=== PATIENT | male | born 1980 | race Caucasian/White ===

== ENCOUNTER 2022-06-04 13:53 | Emergency (ER) | payer OTHER, SELFPAY ==
[2022-06-04 14:24] VITALS: BP 129/76; PULSE 84; RESP 16; TEMP 36.4; O2SAT 98
--- NOTE | 2022-06-04 14:50 | ED.URI ---
HPI - URI/Sore Throat General Chief Complaint: Upper Respiratory Infection Stated Complaint: cough, sore throat Time Seen by Provider: 06/04/22 14:50 Source: patient and RN notes reviewed Mode of arrival: ambulatory Limitations: no limitations History of Present Illness HPI Narrative: 42 y/o male presented for c/o subjective fever, malaise, and painful cough for 2 days. Endorses son is sick with similar symptoms. Denies sob, wheezing, n/v/d. Taking vitamins for symptoms. MD elicited complaint: cough Review of Systems Review of Systems: ROS per HPI PMFSH Family History Family History Father Malignant neoplasm of prostate Social History Social History Smoking status: Never smoker Alcohol intake: current Exam Narrative: GENERAL: Ill-appearing, nontoxic EYES: PERRLA, conjunctivae clear ENT: Mucous membranes moist. TMs pearly yi with dull light reflex bilaterally; no tragal tenderness. Oropharynx normal without lesions or exudate NECK: Supple. No lymphadenopathy CHEST: Clear to auscultation, breath sounds equal. HEART: Regular rate and rhythm. No murmur heard. SKIN: Warm, dry, no rash. NEURO: Alert and oriented x3. PSYCH: Normal mood and affect Course Course Emergency Course: Patient is aware of diagnosis, understands and agrees to treatment plan. Anticipatory guidance given. Patient agrees to follow-up as directed and is aware of reasons to seek care at the emergency department. Portions of this record may have been created with voice recognition software Level of Care: Express Care Visit Vital Signs Vital signs: Vital Signs Temperature 97.6 F 06/04/22 14:24 Pulse Rate 84 06/04/22 14:24 Respiratory Rate 16 06/04/22 14:24 Blood Pressure 129/76 06/04/22 14:24 Pulse Oximetry 98 06/04/22 14:24 Temperature 97.6 F 06/04/22 14:24 Pulse Rate 84 06/04/22 14:24 Respiratory Rate 16 06/04/22 14:24 Blood Pressure 129/76 06/04/22 14:24 Pulse Oximetry 98 06/04/22 14:24 reviewed MDM - URI/Sore Throat MDM Narrative Medical decision making narrative: Influenza negative. Advised supportive measures and signs/symptoms to go to the ER. Pt is appropriate for outpt treatment and f/u. Differential Diagnosis Differential diagnosis: Likely upper respiratory infection, sinusitis, viral infection and influenza Lab Data Labs: Influenza A Screen Negative Reference Range: Negative Influenza B Screen Negative Reference Range: Negative Discharge Plan Discharge Clinical Impression: Viral infection Patient Disposition: Home, Self-Care Condition: Stable Instructions: Influenza (ED) Additional Instructions: You should avoid crowds until you are fever free for 24 hours without the use of fever reducing medications, or the symptoms are improved Rest. Drink plenty of fluids. Tylenol 1000mg every 8 hours as needed for pain/fever Recommend Flonase spray and Zyrtec (or Claritin/Huong) for sinus pressure/congestion over the counter Cough syrup may cause drowsiness; avoid driving or take it at night time. Follow up with your primary care provider as needed in 1-2 weeks Go to the ER for worsening symptoms or concerns Follow-up/Referrals: Kathleen Anne MD [Primary Care Provider] - Time of Disposition: 15:03
== END 2022-06-04 15:12 | disposition home or self-care (01) ==
PROVIDERS: Emergency Provider Nurse Practitioner Family; PCP Internal Medicine
DX: B34.9 Viral infection, unspecified (principal)
CPT/HCPCS: 87804; 99213; G0463